=== PATIENT | male | born 1955 | race Caucasian/White ===

== ENCOUNTER 2017-11-23 15:45 | Inpatient (IN) | payer OTHER ==
[2017-11-23 18:27] VITALS: BMI 30.4
--- NOTE | 2017-11-23 19:40 | HP ---
Admission [facility] Chief Complaint: SEEKING INPATIENT REHAB AFTER DETOX Allergies/Adverse Reactions: Allergies Allergy/AdvReac Type Severity Reaction Status Date / Time shellfish derived Allergy Mild Rash Verified 11/23/17 18:53 No Known Drug Allergies Allergy Verified 11/23/17 18:53 History of Present Illness: 62 Y.O. MALE WITH OPIOID DEPENDENCE HERE FOR INPATIENT REHYAB. NIA COMPLETED DETOX FROM ALCOHOL AND HEROIN AT [facility]. HE WAS REFERRED HERE FOR INPATIENT REHAB. LAST ADMISSION HERE 2012. REPORTS LONGEST CLEAN TIME 2 YEARS. REPORTS HX/O DRUG RELATED SEIZURES DRUG OVERDOSE AND PAST HISTORY OF SI. HE PRESENTLY DENIES SI/HI, SOB, C.P. AVH, PMHX- NEUROPATHY, DM ASTHMA, HTN PSYCH- BIPOLAR Exam Limitations: No Limitations - Ebola screening Have you traveled outside of the country in the last 21 days: No Have you had contact with anyone from an Ebola affected area: No Have you been sick,other than usual withdrawal symptoms: No - Review of Systems Constitutional: Chills, Loss of Appetite, Malaise, Night Sweats, Changes in sleep EENT: reports: Other (RUNNY NOSE) Respiratory: reports: No Symptoms reported Cardiac: reports: No Symptoms Reported GI: reports: Diarrhea, Nausea, Abdominal cramping : reports: No Symptoms Reported Musculoskeletal: reports: Back Pain, Neck Pain Integumentary: reports: No Symptoms Reported Neuro: reports: Numbness (2/2 NEUROPATHY), Seizure (DRUG RELATED) Endocrine: reports: Other (DM) Hematology: reports: No Symptoms Reported Psychiatric: reports: Anxious, Depressed Other Systems: Reviewed and Negative Patient History - Patient Medical History Hx Anemia: No Hx Asthma: Yes Hx Chronic Obstructive Pulmonary Disease (COPD): No Hx Cancer: No Hx Cardiac Disorders: No Hx Congestive Heart Failure: No Hx Hypertension: Yes Hx Hypercholesterolemia: Yes Hx Pacemaker: No HX Cerebrovascular Accident: No Hx Seizures: Yes (DRUG RELATED LAST EPISODE 2 YEARSA GO) Hx Dementia: No Hx Diabetes: No Hx Gastrointestinal Disorders: No Hx Liver Disease: No Hx Genitourinary Disorders: No Hx Sexually Transmitted Disorders: No Hx Renal Disease (ESRD): No Hx Thyroid Disease: No Hx Human Immunodeficiency Virus (HIV): No Hx Hepatitis C: No Hx Depression: Yes (ON NO MEDS) Hx Suicide Attempt: Yes (PAST HX/O) Hx Bipolar Disorder: Yes Hx Schizophrenia: No Other Medical History: DENIES - Patient Surgical History Past Surgical History: Yes Hx Orthopedic Surgery: Yes (LT HIP REPLACEMENT 2000) Anesthesia Reaction: No - PPD History Previous Implant?: Yes Documented Results: Negative w/o proof Implanted On Prior [facility] Admission?: Yes Date: 06/01/12 Results: 0MM PPD to be Administered?: Yes - Smoking Cessation Smoking history: Never smoked Initiated information on smoking cessation: No - Substance & Tx. History Hx Alcohol Use: Yes Hx Substance Use: Yes Substance Use Type: Alcohol, Cocaine Hx Substance Use Treatment: Yes ([facility]) - Substances Abused HEROIN Route: Inhalation Frequency: Daily Amount used: 7 BAGS DAILY Age of first use: 39 Date of Last Use: 11/19/17 VODKA Route: Oral Frequency: Daily Amount used: 1 PINT Age of first use: 14 Date of Last Use: 11/19/17 Family Disease History - Family Disease History Family Disease History: Diabetes: Father (ALCOHOLIC), Heart Disease: Mother (HTN ), Other: Father Admission Physical Exam S - Vital Signs Vital Signs: Vital Signs - 24 hr 11/23/17 18:20 Pulse Rate 78 Respiratory 18 Rate Blood Pressure 134/86 - Physical General Appearance: Yes: Disheveled, Mild Distress, Tremorous, Anxious HEENTM: Yes: EOMI, Normocephalic, Normal Voice, JORDYN, Pharynx Normal, Rhinorrhea Respiratory: Yes: Chest Non-Tender, Lungs Clear, Normal Breath Sounds, No Respiratory Distress, No Accessory Muscle Use Neck: Yes: No masses,lesions,Nodules, Supple, Trachea in good position Breast: Yes: Breast Exam Deferred Cardiology: Yes: Regular Rhythm, Regular Rate, S1, S2 Abdominal: Yes: Normal Bowel Sounds, Non Tender, Soft, Protuberent Genitourinary: Yes: Other (NO C/O) Back: Yes: Normal Inspection Musculoskeletal: Yes: Other (AMBUALTES WITH CANE FOR UNSTEADY GAIT) Extremities: Yes: Tremors Neurological: Yes: Fully Oriented, Alert, Motor Strength 5/5, Depressed Affect Integumentary: Yes: Dry, Warm Lymphatic: Yes: Within Normal Limits - Diagnostic (1) Uncomplicated alcohol dependence Current Visit: Yes Status: Acute (2) Uncomplicated opioid dependence Current Visit: Yes Status: Acute (3) Diabetes Current Visit: Yes Status: Chronic Qualifiers: Diabetes mellitus type: type 2 (4) HTN (hypertension) Current Visit: Yes Status: Chronic Qualifiers: Hypertension type: essential hypertension Qualified Code(s): I10 - Essential (primary) hypertension (5) Neuropathy Current Visit: Yes Status: Chronic (6) Bipolar 1 disorder Current Visit: Yes Status: Acute (7) History of seizures Current Visit: Yes Status: Chronic (8) Substance induced mood disorder Current Visit: Yes Status: Suspected (9) Asthma Current Visit: No Status: Chronic Cleared for Admission [facility] - Detox or Rehab Detox Regimen/Protocol: Not Applicable Claeared for Rehab Admission: No [facility] Breath Alcohol Content Breath Alcohol Content: 0 Urine Drug Screen - Results Drug Screen Negative: No Urine Drug Screen Results: OPI-Opiates, BZO-Benzodiazepines, MTD-Methadone Inpatient Rehab Admission - Initial Determination Are CD services needed?: Yes Free of communicable disease: Yes Not in need of hospitalization: Yes - Rehab Admission Criteria Previous failed treatment: Yes Poor recovery environment: Yes Comorbidities: Yes Lacks judgement: No Patient is meeting Inpatient Rehab admission criteria:: Yes
[2017-11-23] MEDS ORDERED: ALBUTEROL SO4 8 GM HFA INHALER IH PRN (19:56)
[2017-11-23] MEDS ORDERED: MAGNESIUM HYDROX 2400MG/30ML ORAL SUSPENSION 30 ML CUP PO PRN (19:57)
[2017-11-23] MEDS ORDERED: guaiFENesin/D-METHORPHAN HB 10 ML UNIT-DOSE CUPS PO PRN (19:57)
[2017-11-23] MEDS ORDERED: P-EPHED 60MG/TRIPROLIDI 2.5MG TABLET PO PRN (19:57)
[2017-11-23] MEDS ORDERED: MAG HYDROX/AL HYDROX/SIMETH 30 ML UNIT-DOSE CUP PO PRN (19:57)
[2017-11-23] MEDS ORDERED: LOPERAMIDE HCL 2 MG CAPSULE PO PRN (19:57)
[2017-11-23] MEDS ORDERED: MAGNESIUM CITRATE 300 ML BOTTLE PO PRN (19:57)
[2017-11-23] MEDS ORDERED: MENTHOL/PHENOL 1 EACH UD MM PRN (19:57)
[2017-11-23] MEDS ORDERED: ONDANSETRON *ODT* 4 MG TABLET SL PRN (19:59)
[2017-11-23] MEDS ORDERED: ALBUTEROL SO4 2.5/IPRATROPIUM 0.5 INH SOL 3 ML VIAL.NEB. NEB PRN (19:59)
[2017-11-23] MEDS ORDERED: TUBERCULIN PPD 5 TU/0.1ML VIAL ID ONE (22:06)
[2017-11-23] MEDS: THIAMINE HCL 100 MG TABLET (FP) PO SCH (22:07)
[2017-11-23] MEDS: NAPROXEN 500 MG TABLET (FP) PO SCH (22:07)
[2017-11-23] MEDS: GABAPENTIN 300 MG CAPSULE (FP) PO SCH (22:07)
[2017-11-23] MEDS: MELATONIN 5 MG TABLETS PO PRN (22:07)
[2017-11-23] MEDS ORDERED: PT OWN MED DRAWER 7, Y5N ONE (22:25)
[2017-11-24] MEDS: GABAPENTIN 300 MG CAPSULE (FP) PO SCH ×3 (06:31→21:17)
--- NOTE | 2017-11-24 06:34 | HP ---
Psychiatrist Admission - Data Date of interview: 11/24/17 Admission source: [facility] Identifying data: This is the first [facility] admission for this 62 years old male, father of a 40 years old son, unemployed on SSD, homeless Medical History: Significant for bronchial asthma, hypertension, dyslipidemia, diabetes mellitus, diabetic neuropathy, drug-related seizure and history of orthosurgery for left hip replacement in 2000 Psychiatric History: Reports being diagnosed with Bipolar Disorder in 2010. Reports 5-6 previous psychiatic admissions to various institutions including [facility] and most recently in 2014 to a hospital in [place], [place] for suicidal attempt by taking pills. Reports that he has not been getting OPD sevices since 2010 when he attended [facility]. Reports taking Seroquel 100 mg po HS and Zoloft. Has no recollection of dosage for Zoloft. Reports history of 3 suicidal attempts by hanging and overdosing on pills. At present, reports feeling depressed and sleeping poorly. Physical/Sexual Abuse/Trauma History: Denies history of emotional, physical or sexual abuse as well as DV relationship. No service Additional Comment: Reports history of multiple previous arrests including one felony comviction. Denies being on parole/probation at present Vital Signs: Vital Signs - 24 hr 11/23/17 11/23/17 11/24/17 18:20 21:45 00:30 Temperature 98.1 F Pulse Rate 78 93 H Respiratory 18 18 18 Rate Blood Pressure 134/86 133/69 11/24/17 03:30 Temperature Pulse Rate Respiratory 18 Rate Blood Pressure Allergies/Adverse Reactions: Allergies Allergy/AdvReac Type Severity Reaction Status Date / Time shellfish derived Allergy Mild Rash Verified 11/23/17 18:53 No Known Drug Allergies Allergy Verified 11/23/17 18:53 Date of last physical exam: 11/23/17 Concur with the findings of this exam: Yes - Substance Abuse/Tx History Hx Alcohol Use: Yes Hx Substance Use: Yes Substance Use Type: Alcohol (Started drinking alcohol at age 14, consumes one pint of vodka daily. Last drank on 11/19/17), Heroin (Started using heroin at age 39, consumes 7 bags daily. Last used on 11/19/17) Hx Substance Use Treatment: Yes (multiple previous inpt detox & 5 inpt rehab) Mental Status Exam - Mental Status Exam Alert and Oriented to: Time, Place, Person Patient Appearance: Disheveled Mood: Depressed Affect: Constricted Patient Behavior: Cooperative Speech Pattern: Clear Voice Loudness: Normal Thought Process: Intact, Goal Oriented Thought Disorder: Not Present Hallucinations: Denies Suicidal Ideation: Denies Homicidal Ideation: Denies Insight/Judgement: Fair Sleep: Poorly Appetite: Poor Muscle strength/Tone: Normal Gait/Station: Other (uses a cane as ambulatory aid) Psychiatric Findings - Problem List ([place] 1, 2,3) (1) Alcohol dependence Current Visit: No Status: Active (2) Opioid dependence Current Visit: No Status: Active (3) Bipolar disorder Current Visit: Yes Status: Chronic (4) Substance induced mood disorder Current Visit: Yes Status: Acute (5) Substance-induced sleep disorder Current Visit: Yes Status: Acute (6) Diabetes Current Visit: Yes Status: Chronic Qualifiers: Diabetes mellitus type: type 2 (7) HTN (hypertension) Current Visit: Yes Status: Chronic Qualifiers: Hypertension type: essential hypertension Qualified Code(s): I10 - Essential (primary) hypertension (8) History of seizures Current Visit: Yes Status: Chronic (9) Neuropathy Current Visit: Yes Status: Chronic (10) Asthma Current Visit: No Status: Chronic (11) HLD (hyperlipidemia) Current Visit: Yes Status: Acute - Initial Treatment Plan Initial Treatment Plan: 1) Continue Seroquel 100 mg po HS. 2) Start Zoloft 50 mg po daily. 3) Monitor progress
[2017-11-24] MEDS: metFORMIN HCL 500 MG TABLET (FP) PO SCH ×2 (07:10→17:00)
[2017-11-24 10:15] LABS: HEMATOCRIT 43.8 % (35.4-49); MCH 24.1 pg (25.7-33.7); MCHC 31.9 g/dl (32.0-35.9); MEAN CELL VOLUME 75.7 fl (80-96); PLATELET COUNT 323 K/MM3 (134-434); RBC 5.78 M/mm3 (4.00-5.60); WHITE BLOOD COUNT 8.5 K/mm3 (4.0-10.0)
[2017-11-24] MEDS: NAPROXEN 500 MG TABLET (FP) PO SCH ×2 (10:25→21:17)
[2017-11-24] MEDS: PRENATAL VITAMINS W/ FOLIC ACID TABLET (FP) PO SCH (10:25)
[2017-11-24 10:29] LABS: CHLORIDE 105 mmol/L (98-107); POTASSIUM 4.1 mmol/L (3.5-5.1); SODIUM 142 mmol/L (136-145)
[2017-11-24 10:47] LABS: ALBUMIN 3.7 g/dl (3.4-5.0); ALK PHOS 102 U/L (45-117); ANION GAP 12 MMOL/L (8-16); BILIRUBIN,TOTAL 0.6 mg/dL (0.2-1); BLOOD UREA NITROGEN 23 mg/dL (7-18); CALCIUM 9.5 mg/dL (8.5-10.1); CO2 25 mmol/L (21-32); CREATININE 1.1 mg/dL (0.55-1.3); GLUCOSE,RANDOM 110 mg/dL (74-106); SGOT/AST 15 U/L (15-37); SGPT/ALT 20 U/L (13-61); TOT PROT 7.7 g/dl (6.4-8.2)
--- NOTE | 2017-11-24 16:45 | EKG ---
Test Reason : Blood Pressure : / mmHG Vent. Rate : 081 BPM Atrial Rate : 081 BPM P-R Int : 142 ms QRS Dur : 078 ms QT Int : 388 ms P-R-T Axes : 060 056 060 degrees QTc Int : 450 ms POOR DATA QUALITY, INTERPRETATION MAY BE ADVERSELY AFFECTED SINUS RHYTHM WITH FREQUENT PREMATURE VENTRICULAR COMPLEXES OTHERWISE NORMAL ECG WHEN COMPARED WITH ECG OF 23-NOV-2017 20:41, SINUS RHYTHM HAS REPLACED JUNCTIONAL RHYTHM Confirmed by Den Morales ([id number]) on 11/24/2017 4:45:16 PM Referred By: Confirmed By:Den Morales
[2017-11-24 16:59] LABS: URINE APPEARANCE CLOUDY; URINE COLOR AMBER; URINE GLUCOSE (UA) NEGATIVE (NEGATIVE); URINE KETONE NEGATIVE (NEGATIVE); URINE NITRITE NEGATIVE (NEGATIVE); URINE UROBILINOGEN NEGATIVE mg/dL (0.2-1.0)
[2017-11-24 17:00] LABS: URINE LEUK ESTERASE 2+ (NEGATIVE); URINE PROTEIN 1+ (NEGATIVE)
[2017-11-24 17:07] LABS: CALCIUM OXALATE CRYSTALS RARE /hpf (NONE SEEN); URINE HYALINE CAST 9 /lpf; URINE MUCUS MANY
[2017-11-24] MEDS: THIAMINE HCL 100 MG TABLET (FP) PO SCH (21:21)
[2017-11-24] MEDS: MELATONIN 5 MG TABLETS PO PRN (21:21)
--- NOTE | 2017-11-24 21:27 | PN ---
[facility] Progress Note Note: Psychiatric nurse practitioner note: Call received by RN requesting seroquel 100mg for patient. Chart reviewed. Dr. Zaragoza's note read and appreciated. Seroquel 100mg qhs ordered.
[2017-11-24] MEDS: QUEtiapine FUMARATE 100 MG TABLET (FP) PO SCH (22:46)
[2017-11-25] MEDS: GABAPENTIN 300 MG CAPSULE (FP) PO SCH ×3 (06:20→21:26)
[2017-11-25] MEDS: metFORMIN HCL 500 MG TABLET (FP) PO SCH ×2 (07:03→17:45)
[2017-11-25] MEDS: NAPROXEN 500 MG TABLET (FP) PO SCH ×2 (10:01→21:24)
[2017-11-25] MEDS: PRENATAL VITAMINS W/ FOLIC ACID TABLET (FP) PO SCH (10:01)
[2017-11-25] MEDS: THIAMINE HCL 100 MG TABLET (FP) PO SCH (21:24)
[2017-11-25] MEDS: QUEtiapine FUMARATE 100 MG TABLET (FP) PO SCH (21:24)
[2017-11-25] MEDS: MELATONIN 5 MG TABLETS PO PRN (21:24)
[2017-11-26] MEDS: GABAPENTIN 300 MG CAPSULE (FP) PO SCH ×3 (06:09→21:50)
[2017-11-26] MEDS: ACETAMINOPHEN 325 MG TABLET (FP) PO PRN ×2 (06:10→13:54)
[2017-11-26] MEDS: metFORMIN HCL 500 MG TABLET (FP) PO SCH ×2 (07:13→17:13)
[2017-11-26] MEDS: PRENATAL VITAMINS W/ FOLIC ACID TABLET (FP) PO SCH (10:17)
[2017-11-26] MEDS: NAPROXEN 500 MG TABLET (FP) PO SCH ×2 (10:17→21:50)
[2017-11-26] MEDS: cloNIDine HCL 0.1 MG TABLET PO PRN (13:54)
[2017-11-26] MEDS: MELATONIN 5 MG TABLETS PO PRN (21:50)
[2017-11-26] MEDS: QUEtiapine FUMARATE 100 MG TABLET (FP) PO SCH (21:50)
[2017-11-26] MEDS: THIAMINE HCL 100 MG TABLET (FP) PO SCH (21:50)
[2017-11-27] MEDS: GABAPENTIN 300 MG CAPSULE (FP) PO SCH ×3 (06:20→22:29)
[2017-11-27] MEDS: metFORMIN HCL 500 MG TABLET (FP) PO SCH ×2 (06:21→16:57)
[2017-11-27] MEDS: cloNIDine HCL 0.1 MG TABLET PO PRN (10:34)
[2017-11-27] MEDS: NAPROXEN 500 MG TABLET (FP) PO SCH ×2 (10:38→22:29)
[2017-11-27] MEDS: PRENATAL VITAMINS W/ FOLIC ACID TABLET (FP) PO SCH (10:38)
[2017-11-27] MEDS: hydrOXYzine PAMOATE 50 MG CAPSULE (FP) PO PRN (20:27)
[2017-11-27] MEDS: QUEtiapine FUMARATE 100 MG TABLET (FP) PO SCH (22:29)
[2017-11-27] MEDS: THIAMINE HCL 100 MG TABLET (FP) PO SCH (22:29)
[2017-11-28] MEDS: GABAPENTIN 300 MG CAPSULE (FP) PO SCH ×3 (06:21→21:35)
[2017-11-28] MEDS: metFORMIN HCL 500 MG TABLET (FP) PO SCH ×2 (06:22→17:06)
[2017-11-28] MEDS ORDERED: ALBUTEROL SO4 2.5/IPRATROPIUM 0.5 INH SOL 3 ML VIAL.NEB. NEB PRN (07:22)
[2017-11-28] MEDS: PRENATAL VITAMINS W/ FOLIC ACID TABLET (FP) PO SCH (11:14)
[2017-11-28] MEDS: NAPROXEN 500 MG TABLET (FP) PO SCH ×2 (11:14→21:37)
[2017-11-28] MEDS: ACETAMINOPHEN 325 MG TABLET (FP) PO PRN (12:15)
[2017-11-28] MEDS: hydrOXYzine PAMOATE 50 MG CAPSULE (FP) PO PRN (21:37)
[2017-11-28] MEDS: QUEtiapine FUMARATE 100 MG TABLET (FP) PO SCH (21:37)
[2017-11-28] MEDS: THIAMINE HCL 100 MG TABLET (FP) PO SCH (21:37)
[2017-11-28] MEDS: MELATONIN 5 MG TABLETS PO PRN (21:37)
[2017-11-29] MEDS: GABAPENTIN 300 MG CAPSULE (FP) PO SCH ×3 (06:42→21:08)
[2017-11-29] MEDS: metFORMIN HCL 500 MG TABLET (FP) PO SCH ×2 (06:42→16:43)
[2017-11-29] MEDS: PRENATAL VITAMINS W/ FOLIC ACID TABLET (FP) PO SCH (10:57)
[2017-11-29] MEDS: NAPROXEN 500 MG TABLET (FP) PO SCH ×2 (10:57→21:08)
[2017-11-29] MEDS: THIAMINE HCL 100 MG TABLET (FP) PO SCH (21:08)
[2017-11-29] MEDS: QUEtiapine FUMARATE 100 MG TABLET (FP) PO SCH (21:08)
[2017-11-30] MEDS: GABAPENTIN 300 MG CAPSULE (FP) PO SCH ×3 (06:13→21:36)
[2017-11-30] MEDS: metFORMIN HCL 500 MG TABLET (FP) PO SCH ×2 (07:16→16:58)
[2017-11-30] MEDS: PRENATAL VITAMINS W/ FOLIC ACID TABLET (FP) PO SCH (11:00)
[2017-11-30] MEDS: NAPROXEN 500 MG TABLET (FP) PO SCH ×2 (11:00→21:36)
[2017-11-30] MEDS: MELATONIN 5 MG TABLETS PO PRN (21:36)
[2017-11-30] MEDS: QUEtiapine FUMARATE 100 MG TABLET (FP) PO SCH (21:36)
[2017-11-30] MEDS: THIAMINE HCL 100 MG TABLET (FP) PO SCH (21:36)
[2017-12-01] MEDS: GABAPENTIN 300 MG CAPSULE (FP) PO SCH ×3 (06:18→22:21)
[2017-12-01] MEDS: metFORMIN HCL 500 MG TABLET (FP) PO SCH ×2 (07:07→16:43)
[2017-12-01] MEDS: NAPROXEN 500 MG TABLET (FP) PO SCH ×2 (10:43→22:22)
[2017-12-01] MEDS: PRENATAL VITAMINS W/ FOLIC ACID TABLET (FP) PO SCH (10:43)
--- NOTE | 2017-12-01 15:18 | PN ---
[facility] Progress Note Note: Vital Signs Temperature 97 F L 12/01/17 07:15 Pulse Rate 82 12/01/17 07:15 Respiratory Rate 18 12/01/17 07:15 Blood Pressure 118/76 12/01/17 07:15 O2 Sat by Pulse Oximetry (%) Laboratory Last Values WBC 8.5 K/mm3 (4.0-10.0) 11/24/17 07:00 RBC 5.78 M/mm3 (4.00-5.60) H 11/24/17 07:00 Hgb 14.0 GM/dL (11.7-16.9) 11/24/17 07:00 Hct 43.8 % (35.4-49) D 11/24/17 07:00 MCV 75.7 fl (80-96) L 11/24/17 07:00 MCH 24.1 pg (25.7-33.7) L 11/24/17 07:00 MCHC 31.9 g/dl (32.0-35.9) L 11/24/17 07:00 RDW 16.0 % (11.9-15.9) H 11/24/17 07:00 Plt Count 323 K/MM3 (134-434) D 11/24/17 07:00 MPV 9.0 fl (7.5-11.1) 11/24/17 07:00 Sodium 142 mmol/L (136-145) 11/24/17 07:00 Potassium 4.1 mmol/L (3.5-5.1) 11/24/17 07:00 Chloride 105 mmol/L (98-107) 11/24/17 07:00 Carbon Dioxide 25 mmol/L (21-32) 11/24/17 07:00 Anion Gap 12 MMOL/L (8-16) 11/24/17 07:00 BUN 23 mg/dL (7-18) H 11/24/17 07:00 Creatinine 1.1 mg/dL (0.55-1.3) 11/24/17 07:00 Creat Clearance w eGFR > 60 (>60) 11/24/17 07:00 POC Glucometer 95 UNITS (80-120) 12/01/17 06:18 Random Glucose 110 mg/dL (74-106) H 11/24/17 07:00 Calcium 9.5 mg/dL (8.5-10.1) 11/24/17 07:00 Total Bilirubin 0.6 mg/dL (0.2-1) 11/24/17 07:00 AST 15 U/L (15-37) 11/24/17 07:00 ALT 20 U/L (13-61) 11/24/17 07:00 Alkaline Phosphatase 102 U/L (45-117) 11/24/17 07:00 Total Protein 7.7 g/dl (6.4-8.2) 11/24/17 07:00 Albumin 3.7 g/dl (3.4-5.0) 11/24/17 07:00 Urine Color Katie 11/24/17 09:45 Urine Appearance Cloudy 11/24/17 09:45 Urine pH 5.0 (5.0-8.0) D 11/24/17 09:45 Ur Specific Herman 1.035 (1.001-1.035) 11/24/17 09:45 Urine Protein 1+ (NEGATIVE) H 11/24/17 09:45 Urine Glucose (UA) Negative (NEGATIVE) 11/24/17 09:45 Urine Ketones Negative (NEGATIVE) 11/24/17 09:45 Urine Blood Negative (NEGATIVE) 11/24/17 09:45 Urine Nitrite Negative (NEGATIVE) 11/24/17 09:45 Urine Bilirubin 2.0 (<2.0 mg/dL) 11/24/17 09:45 Urine Urobilinogen Negative mg/dL (0.2-1.0) 11/24/17 09:45 Ur Leukocyte Esterase 2+ (NEGATIVE) H 11/24/17 09:45 Urine WBC (Auto) 16 /hpf (3-5) 11/24/17 09:45 Urine RBC (Auto) 9 /hpf (0-3) 11/24/17 09:45 Calcium Oxalate Crystal Rare /hpf (NONE SEEN) 11/24/17 09:45 Hyaline Casts 9 /lpf 11/24/17 09:45 Urine Mucus Many 11/24/17 09:45 RPR Titer Nonreactive (NONREACTIVE) 11/24/17 07:00 c/o of bilateral hip pain, reports pending hip surgery and receiving Toradol for pain. Patient currently receiving Naproxen 500 mg BID TP [place] qd ambulate continue to monitor patient to follow up with primary care provider upon discharge
[2017-12-01] MEDS: METHYL SALICYLATE/MENTHOL OINT 30 GM TUBE TP SCH (16:44)
--- NOTE | 2017-12-01 17:03 | PN ---
[facility] Progress Note Note: NURSE HAO CALLED MY ATTENTION TO PT THIS MORNING STATING THAT PT WANTS TRAMADOL FOR HIS CHRONIC HIP PAIN. PT REPORTS HE WAS DETOXED AT [facility] FOR HEROIN AND ALCOHOL BEFORE COMING HERE FOR REHAB(SEE ADMISSION NOTES). PT REPORTS HE GETS TRAMADOL FOR PAIN. REVIEWED PT'S MEDS AND EXPLAINED TO PATIENT EXISTING GABAPENTIN 600 MG PO TID AND NAPROSYN 500 MG PO BID ON ORDER. AND WILL DISCUSS WITH THE BLENDING MACHINE FEEDER ON NEXT LINE OF TREATMENT.
[2017-12-01] MEDS: THIAMINE HCL 100 MG TABLET (FP) PO SCH (22:21)
[2017-12-01] MEDS: MELATONIN 5 MG TABLETS PO PRN (22:22)
[2017-12-01] MEDS: QUEtiapine FUMARATE 100 MG TABLET (FP) PO SCH (22:22)
[2017-12-02] MEDS: GABAPENTIN 300 MG CAPSULE (FP) PO SCH ×3 (06:24→21:56)
[2017-12-02] MEDS: metFORMIN HCL 500 MG TABLET (FP) PO SCH ×2 (07:06→16:46)
[2017-12-02] MEDS: METHYL SALICYLATE/MENTHOL OINT 30 GM TUBE TP SCH (10:59)
[2017-12-02] MEDS: PRENATAL VITAMINS W/ FOLIC ACID TABLET (FP) PO SCH (10:59)
[2017-12-02] MEDS: NAPROXEN 500 MG TABLET (FP) PO SCH ×2 (10:59→21:56)
[2017-12-02] MEDS: LIDOCAINE 5% TOPICAL PATCH TP SCH (13:57)
--- NOTE | 2017-12-02 14:31 | PN ---
[facility] Progress Note Note: PT SEEN LYING IN BED. PT STILL C/O HIP PAIN PER STAFF WHO REPORTS PATIENT IS ABLE TO GET OUT OF BED AMBULATING WITH CANE AT MEAL TIMES ONLY BUT DECLINES GOING TO GROUPS. PT REPORTS EXCRUCIATING CHRONIC PAIN OF WHICH HE GETS TORADOL INJECTION FOR PAST 3 MONTHS AND IS PLANNING TO HAVE SX AFTER REHAB.REPORTS HIS PROVIDERS ARE AT [facility]. Vital Signs 12/02/17 06:49 Temperature 97.9 F Pulse Rate 90 Respiratory 18 Rate Blood Pressure 109/56 L Laboratory Tests 11/23/17 11/24/17 11/24/17 20:07 06:30 07:00 WBC 8.5 RBC 5.78 H Hgb 14.0 Hct 43.8 D MCV 75.7 L MCH 24.1 L MCHC 31.9 L RDW 16.0 H Plt Count 323 D MPV 9.0 Sodium Potassium Chloride Carbon Dioxide Anion Gap BUN Creatinine Creat Clearance w eGFR POC Glucometer 98 99 Random Glucose Calcium Total Bilirubin AST ALT Alkaline Phosphatase Total Protein Albumin Urine Color Urine Appearance Urine pH Ur Specific [place] Urine Protein Urine Glucose (UA) Urine Ketones Urine Blood Urine Nitrite Urine Bilirubin Urine Urobilinogen Ur Leukocyte Esterase Urine WBC (Auto) Urine RBC (Auto) Calcium Oxalate Crystal Hyaline Casts Urine Mucus RPR Titer 11/24/17 11/24/17 11/24/17 07:00 07:00 09:45 WBC RBC Hgb Hct MCV MCH MCHC RDW Plt Count MPV Sodium 142 Potassium 4.1 Chloride 105 Carbon Dioxide 25 Anion Gap 12 BUN 23 H Creatinine 1.1 Creat Clearance w eGFR > 60 POC Glucometer Random Glucose 110 H Calcium 9.5 Total Bilirubin 0.6 AST 15 ALT 20 Alkaline Phosphatase 102 Total Protein 7.7 Albumin 3.7 Urine Color Katie Urine Appearance Cloudy Urine pH 5.0 D Ur Specific [place] 1.035 Urine Protein 1+ H Urine Glucose (UA) Negative Urine Ketones Negative Urine Blood Negative Urine Nitrite Negative Urine Bilirubin 2.0 Urine Urobilinogen Negative Ur Leukocyte Esterase 2+ H Urine WBC (Auto) 16 Urine RBC (Auto) 9 Calcium Oxalate Crystal Rare Hyaline Casts 9 Urine Mucus Many RPR Titer Nonreactive 11/24/17 11/25/17 11/25/17 17:00 06:20 17:55 WBC RBC Hgb Hct MCV MCH MCHC RDW Plt Count MPV Sodium Potassium Chloride Carbon Dioxide Anion Gap BUN Creatinine Creat Clearance w eGFR POC Glucometer 141 109 144 Random Glucose Calcium Total Bilirubin AST ALT Alkaline Phosphatase Total Protein Albumin Urine Color Urine Appearance Urine pH Ur Specific [place] Urine Protein Urine Glucose (UA) Urine Ketones Urine Blood Urine Nitrite Urine Bilirubin Urine Urobilinogen Ur Leukocyte Esterase Urine WBC (Auto) Urine RBC (Auto) Calcium Oxalate Crystal Hyaline Casts Urine Mucus RPR Titer 11/26/17 11/26/17 11/27/17 06:08 17:12 06:21 WBC RBC Hgb Hct MCV MCH MCHC RDW Plt Count MPV Sodium Potassium Chloride Carbon Dioxide Anion Gap BUN Creatinine Creat Clearance w eGFR POC Glucometer 94 108 98 Random Glucose Calcium Total Bilirubin AST ALT Alkaline Phosphatase Total Protein Albumin Urine Color Urine Appearance Urine pH Ur Specific [place] Urine Protein Urine Glucose (UA) Urine Ketones Urine Blood Urine Nitrite Urine Bilirubin Urine Urobilinogen Ur Leukocyte Esterase Urine WBC (Auto) Urine RBC (Auto) Calcium Oxalate Crystal Hyaline Casts Urine Mucus RPR Titer 11/27/17 11/28/17 11/29/17 16:56 06:21 06:43 WBC RBC Hgb Hct MCV MCH MCHC RDW Plt Count MPV Sodium Potassium Chloride Carbon Dioxide Anion Gap BUN Creatinine Creat Clearance w eGFR POC Glucometer 149 107 95 Random Glucose Calcium Total Bilirubin AST ALT Alkaline Phosphatase Total Protein Albumin Urine Color Urine Appearance Urine pH Ur Specific [place] Urine Protein Urine Glucose (UA) Urine Ketones Urine Blood Urine Nitrite Urine Bilirubin Urine Urobilinogen Ur Leukocyte Esterase Urine WBC (Auto) Urine RBC (Auto) Calcium Oxalate Crystal Hyaline Casts Urine Mucus RPR Titer 11/29/17 11/30/17 11/30/17 16:42 06:13 16:57 WBC RBC Hgb Hct MCV MCH MCHC RDW Plt Count MPV Sodium Potassium Chloride Carbon Dioxide Anion Gap BUN Creatinine Creat Clearance w eGFR POC Glucometer 138 89 114 Random Glucose Calcium Total Bilirubin AST ALT Alkaline Phosphatase Total Protein Albumin Urine Color Urine Appearance Urine pH Ur Specific [place] Urine Protein Urine Glucose (UA) Urine Ketones Urine Blood Urine Nitrite Urine Bilirubin Urine Urobilinogen Ur Leukocyte Esterase Urine WBC (Auto) Urine RBC (Auto) Calcium Oxalate Crystal Hyaline Casts Urine Mucus RPR Titer 12/01/17 12/01/17 12/02/17 06:18 16:43 06:23 WBC RBC Hgb Hct MCV MCH MCHC RDW Plt Count MPV Sodium Potassium Chloride Carbon Dioxide Anion Gap BUN Creatinine Creat Clearance w eGFR POC Glucometer 95 97 114 Random Glucose Calcium Total Bilirubin AST ALT Alkaline Phosphatase Total Protein Albumin Urine Color Urine Appearance Urine pH Ur Specific [place] Urine Protein Urine Glucose (UA) Urine Ketones Urine Blood Urine Nitrite Urine Bilirubin Urine Urobilinogen Ur Leukocyte Esterase Urine WBC (Auto) Urine RBC (Auto) Calcium Oxalate Crystal Hyaline Casts Urine Mucus RPR Titer IMPRESSION: CHRONIC HIP PAIN PLAN:ADD LIDOCAINE PATCH DIRECTED. TO BE SEEN BY DR. FELIZ FURTHER EVALUATION AND PLAN.
[2017-12-02] MEDS: QUEtiapine FUMARATE 100 MG TABLET (FP) PO SCH (21:56)
[2017-12-02] MEDS: THIAMINE HCL 100 MG TABLET (FP) PO SCH (21:56)
[2017-12-02] MEDS: LIDOCAINE PATCH REMOVAL MC SCH (21:57)
[2017-12-03] MEDS: GABAPENTIN 300 MG CAPSULE (FP) PO SCH ×3 (06:33→21:27)
[2017-12-03] MEDS: metFORMIN HCL 500 MG TABLET (FP) PO SCH ×2 (06:33→16:46)
[2017-12-03] MEDS: NAPROXEN 500 MG TABLET (FP) PO SCH (10:47)
[2017-12-03] MEDS: PRENATAL VITAMINS W/ FOLIC ACID TABLET (FP) PO SCH (10:47)
[2017-12-03] MEDS: LIDOCAINE 5% TOPICAL PATCH TP SCH (10:47)
[2017-12-03] MEDS: METHYL SALICYLATE/MENTHOL OINT 30 GM TUBE TP SCH (10:47)
[2017-12-03] MEDS ORDERED: DICLOFENAC SODIUM 25 MG TABLET.DR PO ONE (15:45)
[2017-12-03] MEDS: THIAMINE HCL 100 MG TABLET (FP) PO SCH (21:27)
[2017-12-03] MEDS: MELATONIN 5 MG TABLETS PO PRN (21:28)
[2017-12-03] MEDS: QUEtiapine FUMARATE 100 MG TABLET (FP) PO SCH (21:28)
[2017-12-03] MEDS: LIDOCAINE PATCH REMOVAL MC SCH (21:29)
[2017-12-03] MEDS: DICLOFENAC SODIUM 25 MG TABLET.DR PO SCH (22:00)
[2017-12-04] MEDS: GABAPENTIN 300 MG CAPSULE (FP) PO SCH ×3 (06:35→22:14)
[2017-12-04] MEDS: metFORMIN HCL 500 MG TABLET (FP) PO SCH ×2 (06:35→16:48)
[2017-12-04] MEDS: LIDOCAINE 5% TOPICAL PATCH TP SCH (10:43)
[2017-12-04] MEDS: DICLOFENAC SODIUM 25 MG TABLET.DR PO SCH ×2 (10:43→22:16)
[2017-12-04] MEDS: PRENATAL VITAMINS W/ FOLIC ACID TABLET (FP) PO SCH (10:43)
[2017-12-04] MEDS: METHYL SALICYLATE/MENTHOL OINT 30 GM TUBE TP SCH (10:44)
[2017-12-04] MEDS: QUEtiapine FUMARATE 100 MG TABLET (FP) PO SCH (22:14)
[2017-12-04] MEDS: THIAMINE HCL 100 MG TABLET (FP) PO SCH (22:14)
[2017-12-04] MEDS: LIDOCAINE PATCH REMOVAL MC SCH (22:44)
[2017-12-05] MEDS: GABAPENTIN 300 MG CAPSULE (FP) PO SCH ×3 (06:24→21:02)
[2017-12-05] MEDS: metFORMIN HCL 500 MG TABLET (FP) PO SCH ×2 (07:12→17:07)
[2017-12-05] MEDS: METHYL SALICYLATE/MENTHOL OINT 30 GM TUBE TP SCH (10:03)
[2017-12-05] MEDS: LIDOCAINE 5% TOPICAL PATCH TP SCH (10:03)
[2017-12-05] MEDS: PRENATAL VITAMINS W/ FOLIC ACID TABLET (FP) PO SCH (10:03)
[2017-12-05] MEDS: DICLOFENAC SODIUM 25 MG TABLET.DR PO SCH ×2 (10:04→21:04)
[2017-12-05] MEDS: QUEtiapine FUMARATE 100 MG TABLET (FP) PO SCH (21:02)
[2017-12-05] MEDS: LIDOCAINE PATCH REMOVAL MC SCH (21:02)
[2017-12-05] MEDS: THIAMINE HCL 100 MG TABLET (FP) PO SCH (21:02)
[2017-12-06] MEDS: GABAPENTIN 300 MG CAPSULE (FP) PO SCH ×3 (05:59→21:48)
[2017-12-06] MEDS: metFORMIN HCL 500 MG TABLET (FP) PO SCH ×2 (06:49→16:51)
[2017-12-06] MEDS: PRENATAL VITAMINS W/ FOLIC ACID TABLET (FP) PO SCH (10:18)
[2017-12-06] MEDS: METHYL SALICYLATE/MENTHOL OINT 30 GM TUBE TP SCH (10:18)
[2017-12-06] MEDS: LIDOCAINE 5% TOPICAL PATCH TP SCH (10:18)
[2017-12-06] MEDS: DICLOFENAC SODIUM 25 MG TABLET.DR PO SCH ×2 (10:18→21:49)
[2017-12-06] MEDS: LIDOCAINE PATCH REMOVAL MC SCH (21:48)
[2017-12-06] MEDS: THIAMINE HCL 100 MG TABLET (FP) PO SCH (21:48)
[2017-12-06] MEDS: QUEtiapine FUMARATE 100 MG TABLET (FP) PO SCH (21:48)
[2017-12-07] MEDS: metFORMIN HCL 500 MG TABLET (FP) PO SCH (06:11)
[2017-12-07] MEDS: GABAPENTIN 300 MG CAPSULE (FP) PO SCH (06:11)
[2017-12-07 07:17] VITALS: BP 134/96; PULSE 71; TEMP 97.6
--- NOTE | 2017-12-07 09:29 | PN ---
Psychiatric Progress Note Vital Signs: Vital Signs Period Temp Pulse Resp BP Sys/Painter Pulse Ox Last 24 Hr 97.6 F-97.6 F 71-71 16-18 134-134/96-96 Date of Session: 12/07/17 Chief Complaint:: Discharge Note HPI: Patient addressing Alcohol and Opioid Dependence comorbid with Bipolar Disorder, Substance-Induced Mood Disorder and Substance-Induced Sleep Disirder. ROS: HTN, HLD, Type 2 DM, Neuropathy were medically managed Current Medications: Active Medications Generic Name Dose Route Start Last Admin Trade Name Freq PRN Reason Stop Dose Admin Acetaminophen 650 mg 11/23/17 19:57 11/28/17 12:15 Tylenol - PO 650 mg Q4H PRN Administration FEVER Al Hydroxide/Mg Hydroxide 30 ml 11/23/17 19:57 Mylanta Oral Suspension - PO Q6H PRN DYSPEPSIA Albuterol Sulfate 2 puff 11/23/17 19:56 Ventolin Hfa Inhaler - IH Q4H PRN ASTHMA Clonidine 0.2 mg 11/23/17 19:58 11/27/17 10:34 Catapres - PO 0.2 mg Q6H PRN Administration WITHDRAWAL SX'S Diclofenac Sodium 50 mg 12/03/17 22:00 12/06/17 21:49 Voltaren - PO 50 mg BID WILLIE Administration Eucalyptus/Menthol/Phenol/Sorbitol 1 each 11/23/17 19:57 Cepastat Lozenge - MM Q4H PRN SORE THROAT Gabapentin 600 mg 11/23/17 22:00 12/07/17 06:11 Neurontin - PO 600 mg TID WILLIE Administration Guaifenesin 10 ml 11/23/17 19:57 Robitussin Dm - PO Q6H PRN COUGH Hydroxyzine Pamoate 50 mg 11/23/17 19:57 11/28/17 21:37 Vistaril - PO 50 mg Q4H PRN Administration AGITATION Lidocaine 1 patch 12/02/17 13:00 12/06/17 10:18 Lidoderm Patch - TP 1 patch DAILY WILLIE Administration Loperamide HCl 4 mg 11/23/17 19:57 Imodium - PO Q6H PRN DIARRHEA Magnesium Citrate 300 ml 11/23/17 19:57 Citroma - PO Q48H PRN CONSTIPATION Magnesium Hydroxide 30 ml 11/23/17 19:57 Milk Of Magnesia - PO DAILY PRN CONSTIPATION Melatonin 5 mg 11/23/17 22:00 12/03/17 21:28 Melatonin PO 5 mg HS PRN Administration INSOMNIA Metformin HCl 500 mg 11/24/17 07:00 12/07/17 06:11 Glucophage - PO 500 mg BIDAC WILLIE Administration Methyl Salicylate 1 applic 12/01/17 15:15 12/06/17 10:18 Jorge Luis-Atkinson - TP Not Given DAILY WILLIE Miscellaneous 1 each 12/02/17 22:00 12/06/17 21:48 Lidoderm Patch Removal MC 1 each DAILY@2200 WILLIE Administration Ondansetron HCl 4 mg 11/23/17 19:59 Zofran Odt - SL Q8H PRN NAUSEA AND/OR VOMITING Multivit/Folic Acid/Iron 1 tab 11/24/17 10:00 12/06/17 10:18 Vitamins ([facility]) - PO 1 tab DAILY WILLIE Administration Pseudoephedrine/Triprolidine 1 combo 11/23/17 19:57 Actifed - PO TID PRN NASAL CONGESTION Quetiapine Fumarate 100 mg 11/24/17 22:00 12/06/17 21:48 Seroquel - PO 100 mg HS WILLIE Administration Thiamine HCl 100 mg 11/23/17 22:00 12/06/17 21:48 Vitamin B1 - PO 100 mg HS WILLIE Administration Current Side Effect: No Lab tests ordered: Yes Lab tests reviewed: Yes Provider note:: Patient has completed this program. He has partially met his treatment goals and will continue to address his issues in outpatient treatment at [facility]. Told senior technical writer that from his participation in this program, he has learned the importance of making meetings and have a sponsor. He respoded well to Seroquel 100 mg po HS. Script for 30 days supply of medication is electronically transmitted to [facility] at [address] [place] [address]. Patient is stable for discharged today Mental Status Exam - Mental Status Exam Alert and Oriented to: Time, Place, Person Cognitive Function: Fair Patient Appearance: Disheveled Mood: Hopeful, Euthymic Affect: Appropriate Patient Behavior: Cooperative Speech Pattern: Clear Voice Loudness: Normal Thought Process: Intact, Goal Oriented Thought Disorder: Not Present Hallucinations: Denies Suicidal Ideation: Denies Homicidal Ideation: Denies Insight/Judgement: Fair Sleep: Fair Appetite: Good Muscle strength/Tone: Normal Gait/Station: Other (Uses a cane as ambulatory aid) Psychiatric Treatment Plan - Problem List (1) Alcohol dependence Current Visit: No (2) Opioid dependence Current Visit: No (3) Bipolar disorder Current Visit: Yes (4) Substance induced mood disorder Current Visit: Yes (5) Substance-induced sleep disorder Current Visit: Yes (6) Diabetes Current Visit: Yes Qualifiers: Diabetes mellitus type: type 2 (7) HTN (hypertension) Current Visit: Yes Qualifiers: Hypertension type: essential hypertension Qualified Code(s): I10 - Essential (primary) hypertension (8) History of seizures Current Visit: Yes (9) Neuropathy Current Visit: Yes (10) Asthma Current Visit: No (11) HLD (hyperlipidemia) Current Visit: Yes Initial treatment plan: Patient is discharged today and referred to [facility] for outpatient treatment
== END 2017-12-07 09:30 | disposition home or self-care (01) | DRG 772 ==
LOC: YASAS 15:45 → Y3W 20:30
PROVIDERS: ADMIT Psychiatry & Neurology Psychiatry; ATTEND Psychiatry & Neurology Psychiatry
PROC: HZ42ZZZ Group Counseling for Substance Abuse Treatment, Cognitive-Behavioral (ICD-10-PCS; principal; 2017-11-23)
DX: F11.20 Opioid dependence, uncomplicated (principal); F10.20 Alcohol dependence, uncomplicated; F31.9 Bipolar disorder, unspecified; F19.24 Other psychoactive substance dependence with psychoactive substance-induced mood disorder; F19.282 Other psychoactive substance dependence with psychoactive substance-induced sleep disorder; I10 Essential (primary) hypertension; E11.9 Type 2 diabetes mellitus without complications; Z79.84 Long term (current) use of oral hypoglycemic drugs; E78.5 Hyperlipidemia, unspecified; G62.9 Polyneuropathy, unspecified; Z86.69 Personal history of other diseases of the nervous system and sense organs; Z96.642 Presence of left artificial hip joint; R26.89 Other abnormalities of gait and mobility; Z99.89 Dependence on other enabling machines and devices; Z91.5 Personal history of self-harm
CPT/HCPCS: 36415; 80053; 81003; 81015; 82962; 85027; 86593; 93005; 93010; J0735